=== PATIENT | female | born 2000 | race Caucasian/White ===

== ENCOUNTER 2021-02-04 17:35 | Emergency (ER) | payer OTHER ==
[~2021-02-04 17:35] MED LIST: VENTOLIN HFA IN18 GM INH; VOLTAREN **OUT75 MG PO
[2021-02-04 18:55] LABS: CORONAVIRUS 2019 SARS-COV-2 NEGATIVE (NEGATIVE); INFLUENZA A NAA NEGATIVE (NEGATIVE)
[2021-02-04] MEDS ORDERED: ZOFRAN4 M1 PO (20:40)
== END 2021-02-04 21:16 | disposition home or self-care (01) ==
LOC: FER 17:35
PROVIDERS: Emergency Medicine
DX: B34.9 Viral infection, unspecified (principal); F17.290 Nicotine dependence, other tobacco product, uncomplicated; Z20.822 Contact with and (suspected) exposure to COVID-19
CPT/HCPCS: 87880; 99284; U0002

== ENCOUNTER 2021-05-30 16:45 | Emergency (ER) | payer OTHER ==
[~2021-05-30 16:45] MED LIST changes: +ZOFRAN4 M1 PO
[2021-05-30 18:13] LABS: BASOPHIL 0.4 % (0-2); EOSINOPHIL 3.1 % (0-5); HCT 40.7 % (37.0-47.0); HGB 13.2 g/dl (12.5-16.0); LYMPHOCYTE 25.1 % (15-48); MCH 28.6 pg (25.0-31.0); MCHC 32.4 g/dL (32.0-36.0); MCV 88.1 fL (78.0-100.0); MONOCYTE 5.4 % (0-12); MPV 11.3 fL (6.0-9.5); NEUTROPHIL 65.8 % (41-80); NRBC 0; PLT 273 K/uL (150-400); RBC 4.62 M/uL (4.20-5.40); RDW 13.7 % (11.5-14.0); WBC 8.4 K/uL (4.0-10.5)
[2021-05-30 18:29] LABS: BUN/CREAT RATIO (CALC) 19.5 RATIO; CREATININE 0.77 mg/dL (0.51-0.95); POTASSIUM 4.2 mmol/L (3.5-5.1)
== END 2021-05-30 18:49 | disposition home or self-care (01) ==
LOC: FER 16:45
PROVIDERS: Nurse Practitioner Family
DX: N92.0 Excessive and frequent menstruation with regular cycle (principal)
CPT/HCPCS: 36415; 80048; 85025; 99284; J7030

== ENCOUNTER 2021-08-10 07:39 | Emergency (ER) | payer OTHER ==
[2021-08-10 08:36] LABS: BASOPHIL 0.3 % (0-2); EOSINOPHIL 0.6 % (0-5); HCT 41.2 % (37.0-47.0); HGB 13.5 g/dl (12.5-16.0); LYMPHOCYTE 22.6 % (15-48); MCH 28.8 pg (25.0-31.0); MCHC 32.8 g/dL (32.0-36.0); MONOCYTE 3.2 % (0-12); MPV 11.2 fL (6.0-9.5); NEUTROPHIL 72.9 % (41-80); NRBC 0; PLT 301 K/uL (150-400); RBC 4.68 M/uL (4.20-5.40); RDW 12.8 % (11.5-14.0); WBC 12.4 K/uL (4.0-10.5)
[2021-08-10 08:52] LABS: BUN/CREAT RATIO (CALC) 9.8 RATIO; CREATININE 0.82 mg/dL (0.51-0.95)
[2021-08-10] MEDS ORDERED: REGLAN10 MG PO (09:56)
[2021-08-10] MEDS ORDERED: NAPROXEN500 MG PO (09:56)
[2021-08-10] MEDS ORDERED: RIZATRIPTAN10 M1 PO (09:56)
== END 2021-08-10 10:18 | disposition home or self-care (01) ==
LOC: FER 07:39
PROVIDERS: Internal Medicine
DX: G43.909 Migraine, unspecified, not intractable, without status migrainosus (principal)
CPT/HCPCS: 36415; 80048; 85025; 96372; J1885; J2765; J3030; J7030

== ENCOUNTER 2022-01-04 18:56 | Emergency (ER) | payer OTHER ==
[~2022-01-04 18:56] MED LIST changes: +NAPROXEN500 MG PO; +REGLAN10 MG PO; +RIZATRIPTAN10 M1 PO
[2022-01-04] MEDS ORDERED: KEFLEX250 MG PO (21:55)
== END 2022-01-04 22:12 | disposition home or self-care (01) ==
LOC: FER 18:56
DX: S80.812A Abrasion, left lower leg, initial encounter (principal); L03.116 Cellulitis of left lower limb; J45.909 Unspecified asthma, uncomplicated; F17.210 Nicotine dependence, cigarettes, uncomplicated; W19.XXXA Unspecified fall, initial encounter; Y92.009 Unspecified place in unspecified non-institutional (private) residence as the place of occurrence of the external cause
CPT/HCPCS: 99283